=== PATIENT | male | born 1940 | race Caucasian/White ===

== ENCOUNTER → 2016-12-01 | Outpatient (CLI) | payer OTHER ==
[~2016-12-01] MED LIST: GADOBUTROL 10 ML VIAL IVP ONE
[2016-12-01 20:29] LABS: CREATININE 1.8 mg/dL (0.7-1.3)
== END ==
LOC: FIMAGING 19:16
DX: M51.86 Other intervertebral disc disorders, lumbar region (principal); M46.96 Unspecified inflammatory spondylopathy, lumbar region; M48.06 Spinal stenosis, lumbar region; Z98.890 Other specified postprocedural states
CPT/HCPCS: 72158; A9585

== ENCOUNTER → 2016-12-22 | Outpatient (CLI) | payer OTHER | LOC: FIMAGING 06:55 | PROVIDERS: ATTEND Urology | DX: N28.1 Cyst of kidney, acquired (principal) | CPT/HCPCS: 74183; A9585 ==

== ENCOUNTER 2017-01-22 07:40 | Outpatient (CLI) | payer OTHER ==
[2017-01-22 09:13] LABS: HEMATOCRIT 30.6 % (40.0-51.0)
[2017-01-22 09:24] LABS: APTT 29.6 SEC (23.0-38.0); CREATININE 1.6 mg/dL (0.7-1.3); INR 1.11 (0.83-1.16); PROTIME(PATIENT) 14.2 SEC (12.0-15.0)
[2017-01-22] MEDS ORDERED: IOPAMIDOL (ISOVUE-300) 100 ML BTL ONE (10:22)
== END 2017-01-22 11:30 | disposition home health service (06) ==
LOC: FIMAGING 07:40
PROVIDERS: ATTEND Urology
PROC: 0T913ZZ Drainage of Left Kidney, Percutaneous Approach (ICD-10-PCS; principal; 2017-01-22 10:34)
DX: N28.1 Cyst of kidney, acquired (principal)
CPT/HCPCS: 50390; 75989; 76770; 99152; Q9967